=== PATIENT | female | born 1955 | race Two or more races ===

== ENCOUNTER 2017-06-20 14:40 | Outpatient (CLI) | payer OTHER ==
[2011-02-04 08:30] VITALS: BMI 22.3
== END 2017-06-20 14:41 | disposition home or self-care (01) ==
LOC: D.MAMMO 14:40
DX: Z12.31 Encounter for screening mammogram for malignant neoplasm of breast (principal)

== ENCOUNTER → 2019-02-22 09:00 | Outpatient (CLI) | payer OTHER ==
[2011-02-04 08:30] VITALS: BMI 22.3
== END | disposition home or self-care (01) ==
LOC: D.MAMMO 09:00
PROVIDERS: ATTEND Family Medicine
DX: Z12.31 Encounter for screening mammogram for malignant neoplasm of breast (principal)